=== PATIENT | female | born 1980 | race Caucasian/White ===

== ENCOUNTER 2021-12-24 18:08 | Outpatient (REF) | payer BC, SELFPAY ==
[2021-12-24 18:54] LABS: ALT 38 U/L (14-59); AST 26 U/L (15-37); Albumin 3.9 g/dL (3.4-5.0); Alkaline Phosphatase 86 U/L (46-116); Anion Gap 11.2 mmol/L (3-11); BUN 11 mg/dL (7-18); Bilirubin, Total 0.3 mg/dL (0.2-1.0); CO2 24.8 mmol/L (21.0-32.0); CREATININE 0.9 mg/dL (0.55-1.02); Calcium 8.9 mg/dL (8.5-10.1); Chloride 102 mmol/L (98-107); Glucose 84 mg/dL (74-106); Sodium 138 mmol/L (136-145)
== END 2021-12-24 18:09 | disposition home or self-care (01) ==
LOC: LBO 18:08
PROVIDERS: Visit Provider Physician Assistant Medical
DX: U09.9 Post COVID-19 condition, unspecified (principal)
CPT/HCPCS: 80053

== ENCOUNTER 2023-12-15 20:14 | Outpatient (CLI) | payer OTHER, SELFPAY ==
[2023-12-15 13:45] LABS: Abs Immature Grans 0.02 10^3/uL (0.0-0.06); HCT 35.8 % (36.0-46.0); HGB 12.3 g/dL (11.2-15.7); MCH 26.3 pg (27.0-33.0); MCHC 34.4 % (32.0-36.0); MCV 77 fL (80-95); MPV 10.1 fL (8.0-11.0); Platelet Count 206 10^3/uL (130-400); RBC 4.68 10^6/uL (3.93-5.22); RDW 13.6 % (11.7-14.6); RDW-SD 37.7 fL
[2023-12-15 13:58] LABS: ESR 48 mm/hr (0-20)
[2023-12-15 14:17] LABS: Absolute Eosinophil Count 0.19 10^3/uL (0.0-0.7); Absolute Lymphocyte Count 2.35 10^3/uL (1.2-3.4); Absolute Monocyte Count 0.29 10^3/uL (0.1-0.8); Absolute Neutrophil Count 1.87 10^3/uL (1.2-6.7); Atypical Lymphocytes % 2 %; Diff Comment Manual Differential; RBC Morphology Normal
[2023-12-15 15:06] LABS: ALT 33 U/L (14-59); AST 33 U/L (15-37); Albumin 3.5 g/dL (3.4-5.0); Alkaline Phosphatase 76 U/L (46-116); Anion Gap 12.6 mmol/L (3-11); BUN 12 mg/dL (7-18); Bilirubin, Total 0.6 mg/dL (0.2-1.0); CO2 24.4 mmol/L (21.0-32.0); CREATININE 0.9 mg/dL (0.55-1.02); Calculated LDL 117 mg/dL (<100); Chloride 100 mmol/L (98-107); Cholesterol 179 mg/dL (<200); Estimated GFR 81.35 (mL/min/1.73m2); Glucose 85 mg/dL (74-106); HDL Cholesterol 38 mg/dL (40-60); Magnesium 2.2 mg/dL (1.8-2.4); Potassium 3.9 mmol/L (3.5-5.1); Sodium 137 mmol/L (136-145); T4 9.6 ug/dL (4.7-13.3); TSH 1.38 uIU/Ml (0.36-3.74); Total Protein 7.9 g/dL (6.4-8.2); Triglyceride 124 mg/dL (<150)
[2023-12-15 22:26] LABS: CRP, High Sensitivity >15.00 mg/L (See Note)
[2023-12-16 12:40] LABS: Lyme Ab w Rflx to Lyme Confirm Negative (Negative)
[2023-12-16 14:12] LABS: ANA Interpretation Positive (Negative)
== END 2023-12-15 20:15 | disposition home or self-care (01) ==
LOC: LBO 20:14
PROVIDERS: Visit Provider Dietitian, Registered
DX: R53.83 Other fatigue (principal); R21 Rash and other nonspecific skin eruption; R25.2 Cramp and spasm; Z13.220 Encounter for screening for lipoid disorders; Z13.1 Encounter for screening for diabetes mellitus; Z13.0 Encounter for screening for diseases of the blood and blood-forming organs and certain disorders involving the immune mechanism; R63.0 Anorexia
CPT/HCPCS: 36415; 80053; 80061; 85652; 86141; 83735; 84436; 84443; 85025; 86038; 86618

== ENCOUNTER 2023-12-23 14:56 | Outpatient (CLI) | payer OTHER, SELFPAY ==
[2023-12-23 16:30] LABS: Creatine Kinase 54 U/L (26-192)
[2023-12-23 16:31] LABS: C-Reactive Protein < 0.50 mg/dL (<or=0.5)
[2023-12-23 16:53] LABS: Ferritin 62 ng/mL (8-252)
[2023-12-24 21:39] LABS: Rheumatoid Factor <8.6 IU/mL (<12.0)
[2023-12-26 10:54] LABS: Thyroglobulin Antibody <15 U/mL (<=60); Thyroperoxidase Antibody <28 U/mL (<=60)
[2023-12-26 12:30] LABS: dsDNA Ab, IgG <22.0 IU/mL (<27.0)
[2023-12-26 12:37] LABS: RNP Ab, IgG <6.0 CU (<20.0); Ro60 Ab, IgG <7.0 CU (<20.0); SS-A/Ro, IgG <2.3 CU (<20.0); SS-B (La) Ab, IgG <3.3 CU (<20.0); Sm (Smith) Ab, IgG <8.0 CU (<20.0)
[2023-12-27 16:13] LABS: HLA-B27 Result Negative
[2023-12-30 15:58] LABS: Dehydroepiandrosterone (DHEA) 1.8 ng/mL (<8.0)
== END 2023-12-23 14:57 | disposition home or self-care (01) ==
LOC: LBO 14:57
PROVIDERS: Visit Provider Dietitian, Registered
DX: R70.0 Elevated erythrocyte sedimentation rate; R79.82 Elevated C-reactive protein (CRP); R53.83 Other fatigue; E66.9 Obesity, unspecified; R21 Rash and other nonspecific skin eruption
CPT/HCPCS: 36415; 82550; 86376; 86812; 82626; 82728; 83088; 83525; 86140; 86225; 86235; 86431

== ENCOUNTER 2023-12-24 17:20 | Emergency (ER) | payer OTHER, SELFPAY ==
[2023-12-24 17:23] VITALS: BP 135/93; PULSE 78; RESP 10; TEMP 36.4; O2SAT 100
--- NOTE | 2023-12-24 17:27 | ED.GENADUL_ITS ---
Discharge Plan Disposition Patient Disposition: Home Condition: Stable Discharge Details Clinical Impression: Laceration of right middle finger Primary Care Provider: Unknown,Unknown ED Provider: Jerrod Red Home Meds and New Rx's Prescriptions: No Action No Known Home Meds Discharge Instructions Instructions: Diphtheria and Tetanus Toxoids, and Acellular Pertussis Vaccine, Laceration Repair With Stitches ED, Wound Care ED Additional Instructions: You were seen in the emergency department for the laceration of your right third finger, this was repaired by 8 sutures, these will need to be taken out by returning to the emergency department in about 7 to 10 days for suture removal. Please watch for any signs of infection including increasing redness, swelling, increase in pain to light touch, redness spreading up the arm, drainage of pus from the area and return to the ER promptly for any of these complications. Please change your dressing daily, you may wash the wound and soap and water, please do not submerge the wound whatsoever until after suture removal. It may be helpful to keep the finger immobilized for the first couple days to aid in h ealing, take Tylenol and ibuprofen as needed for pain. HPI General Date/Time Provider Initiated Documentation: 12/24/23 17:27 . HPI Narrative: 43 year-old female presents to ED today by POV/ambulating with a chief complaint of R middle finger laceration on a knife while at a basketmaking session with onset just prior to arrival. Quality described as bleeding linear laceration on R 3rd finger pad, no radiation to complete numbness, through and through laceration, nailbed injury, proximal arm pain. Severity is described as mild for pain. Palliating factors include applied direct pressure and simple bandage. Provoking factors include nothing specific. Events leading up to the inci dent/Associated Symptoms: Patient's Tdap is out of date. Patient not anticoagulated. Related Data Home Medications Medication Instructions Recorded Confirmed Unknown [No Known Home Meds] 12/24/23 12/24/23 Allergies Allergy/AdvReac Type Severity Reaction Status Date / Time No Known Allergies Allergy Unverified 12/24/23 17:27 General Stated Complaint: Laceration DELGADO: 4 Review of Systems All systems reviewed & are unremarkable except as noted in HPI and below Exam Narrative Exam Narrative: GENERAL APPEARANCE: Well-nourished, non-toxic, awake and alert, atraumatic, no acute distress. SKIN: Warm, pink, dry, 3.5 cm linear superficial laceration to the right distal finger pad and vertical oblique orientation, full strength and sensation of the right finger, no nailbed injury. HEAD: Normocephalic, atraumatic, normal hair distribution for gender/age. EYES: Normal conjunctiva, no exudates on lids/lashes. ENT: Nares patent, no circumoral cyanosis, no facial swelling NECK: Supple, trachea midline, painless cervical ROM. LUNGS/CHEST: Non-labored respirations, normal A/P diameter, symmetrical expansion, no chest wall deformity HEART (CV/PV): Regular rate, R radial pulse 2+, no peripheral edema, no JVD. ABDOMEN: Soft, non-distended, no guarding. MSK: Normal ROM, no swelling/deformity to bilateral UEs or LEs, moving all extremities without weakness, no cyanosis, spine midline without tenderness, normal curvature. NEURO: Mental Status AAOx4 - alert to person, place, time, events No facial droop, no forehead involvement. Motor: No focal weakness - strength 5/5 in bilateral UEs and LEs, proximal and distal, symmetric. Sensory: sensation intact to light touch globally. Gait normal: patient ambulated without ataxia into ED room. PSYCH: euthymic, cooperative, pleasant, appropriate speech Course Vital Signs Vital signs: Vital Signs Temperature 36.4 C L 12/24/23 17:23 Pulse 78 12/24/23 17:23 Respiratory Rate 10 L 12/24/23 17:23 Blood Pressure 135/93 H 12/24/23 17:23 Pulse Oximetry 100 12/24/23 17:23 Temperature 36.4 C L 12/24/23 17:23 Temperature Source Temporal Artery Scan 12/24/23 17:23 Pulse 78 12/24/23 17:23 Respiratory Rate 10 L 12/24/23 17:23 Respiratory Effort Normal, Non-Labored 12/24/23 17:25 Blood Pressure 135/93 H 12/24/23 17:23 Blood Pressure Position Sitting 12/24/23 17:23 Pulse Oximetry 100 12/24/23 17:23 Oxygen Delivery Method Room Air 12/24/23 17:23 Oxygen Flow Rate 0 12/24/23 17:23 Pain Level 5 12/24/23 17:23 Procedures Laceration Laceration 1: Site: hand Side (If applicable): right Size (cm): 3.5 Description: linear and clean Depth: simple, single layer Local Anesthetic: Lidocaine 1% Amount of anesthesia used (mL): 5 Pre-repair: wound explored, irrigated extensively and deep structures intact Skin layer closed with: nylon Size (cm): 5-0 Number of sutures: 8 Technique: simple, interrupted Medical Decision Making This dictation utilizes [id number] dictation software and may contain unedited grammatical errors. 43 year-old female presents to ED today by POV/ambulating with a chief complaint of R middle finger laceration on a knife while at a basketmaking session with onset just prior to arrival. Quality described as bleeding linear laceration on R 3rd finger pad, no radiation to complete numbness, through and through laceration, nailbed injury, proximal arm pain. Severity is described as mild for pain. Palliating factors include applied direct pressure and simple bandage. Provoking factors include nothing specific. Events leading up to the incident/Associated Symptoms: Patient's Tdap is out of date. Patients' medical history: Negative, otherwise healthy. Family and social history: Noncontributory. Pertinent exam findings / vital signs include 3.5 cm linear superficial laceration to the right distal finger pad and vertical oblique orientation, full strength and sensation of the right finger, no nailbed injury. Differential / pathologies of concern include laceration. Diagnostic studies of: -None. Interventions of: -Tdap, suture repair. ED Course/Assessment/Plan: 43-year-old female was at a basket making class and slipped letting a knife cut her right middle finger, patient is right-hand dominant. Tetanus is out of date likely a long time ago and that was updated today. She was anesthetized with 4 mL of 1% lidocaine without epinephrine and ring block fashion in the wound was further anesthetized with 1 mL of lidocaine locally. Performed suture repair with 8 sutures of 5-0 Ethilon, provided bacitracin and bandage and tongue depressor splint to remain immobilized tonight to aid in wound healing, strict return criteria for any signs of infection like fever, redness spreading up the arm, severe increase in swelling, stressed return criteria in 7 to 10 days for suture removal.. Findings not consistent with tendon laceration, grossly contaminated wound. Disposition of Laceration of Right Middle Finger. Patient verbalized understanding of the plan and return to ED criteria and engaged in shared decision making. Medical Records Medical records reviewed: Yes I reviewed the patient's medical records. Quality:SDOH Health Related Social Needs: No Data to Display PFSH All Active Problems (Updated 12/24/23 @ 18:15 by BHUMIKA Ovalle) Laceration of right middle finger (Acute) Social History Smoking/Tobacco Use Status: Never Smoking risk assessment performed?: Yes Alcohol Intake: current Alcohol Intake frequency: holidays/special occasions only Drug use: Never Substance use type: does not use Housing: house Do you feel safe at home: Yes Do you feel safe in your relationship?: Yes PAWSS Have you Been Recently Intoxicated or Drunk Within the Last 30 days?: No Have you Ever Experienced Previous Episodes of Alcohol Withdrawal?: No Have you ever Experienced Withdrawal Seizures?: No Have you ever Experienced Delirium Tremens(DT)s?: No Have you ever undergone Alcohol Rehabilitation Treatment (i.e, inpt ot o utpatient treatment programs)?: No Have you ever Experienced Blackouts?: No Have you ever Combined Alcohol with other Downers within the last 90 days?: No Have you ever Combined Alcohol with any other Substance of Abuse during the last 90 days?: No Positive Blood Alcohol level on Presentation? [PCS.BAL]: No Evidence of Increased Autonomic Activity (i.e. HR>120, tremor, sweating, agitation, nausea)?: No Result: 0
[2023-12-24 18:35] VITALS: BP 135/93; PULSE 78; RESP 10; TEMP 36.4; O2SAT 100
[2023-12-24] MEDS: Lidocaine 1% Pres-Free 5 ML VIAL IJ (18:36)
== END 2023-12-24 18:35 | disposition home or self-care (01) ==
LOC: ER 18:34
PROVIDERS: Emergency Provider Physician Assistant
DX: S61.212A Laceration without foreign body of right middle finger without damage to nail, initial encounter (principal); W26.0XXA Contact with knife, initial encounter; Z23 Encounter for immunization
CPT/HCPCS: 12002; 90471; 90715; J2003

== ENCOUNTER 2024-01-18 11:28 | Outpatient (CLI) | payer OTHER, SELFPAY ==
[2024-01-18 19:21] LABS: FSH 9.1 mIU/mL (See Note)
[2024-01-19 11:20] LABS: C3 Complement 154 mg/dL (81-157)
== END 2024-01-18 11:29 | disposition home or self-care (01) ==
LOC: LBO 11:28
DX: L25.9 Unspecified contact dermatitis, unspecified cause (principal); N95.1 Menopausal and female climacteric states; E70.0 Classical phenylketonuria; R79.89 Other specified abnormal findings of blood chemistry
CPT/HCPCS: 36415; 83001; 86160

== ENCOUNTER 2024-02-22 02:59 | Outpatient (CLI) | payer OTHER, SELFPAY ==
[2024-02-22 21:47] LABS: CRP, High Sensitivity 4.89 mg/L (See Note)
== END 2024-02-22 03:00 | disposition home or self-care (01) ==
PROVIDERS: Visit Provider Dietitian, Registered
DX: R79.82 Elevated C-reactive protein (CRP) (principal); R94.7 Abnormal results of other endocrine function studies
CPT/HCPCS: 36415; 86141; 83525; 86140